=== PATIENT | female | born 1970 | race Caucasian/White ===

== ENCOUNTER → 2019-02-22 | Outpatient (CLI) | payer OTHER | LOC: LL.CLIN 14:30 | PROVIDERS: ATTEND Nurse Practitioner | DX: Z77.21 Contact with and (suspected) exposure to potentially hazardous body fluids (principal); W46.0XXA Contact with hypodermic needle, initial encounter | CPT/HCPCS: 36415; 86703; 86803; 87340 ==

== ENCOUNTER 2021-03-07 19:28 | Emergency (ER) | payer MEDICARE, MEDICAID ==
--- NOTE | 2021-03-07 23:09 | EDM.PDOC ---
ED HPI GENERAL MEDICAL PROBLEM - General Chief Complaint: General Stated Complaint: DOA Time Seen by Provider: 03/07/21 20:44 Source of Information: Reports: EMS ED ROS GENERAL - Review of Systems Review Of Systems: See Below Reason Not Obtained: DOA ED EXAM, GENERAL - Physical Exam Exam: See Below Reason Not Obtained: DOA Departure - Departure Time of Disposition: 00:20 Disposition: 20 Clinical Impression: - Discharge Information *PRESCRIPTION DRUG MONITORING PROGRAM REVIEWED*: Not Applicable *COPY OF PRESCRIPTION DRUG MONITORING REPORT IN PATIENT NURIA: Not Applicable Referrals: PCP,None [Primary Care Provider] - Forms: ED Department Discharge - Problem List Review Problem List Initiated/Reviewed/Updated: Yes - Assessment/Plan Assessment:: DOA; - home arrived to [employer] body. no concerns noted.
== END 2021-03-07 20:45 | disposition expired ==
LOC: LL.ED 19:28
CPT/HCPCS: 99282; 99284